=== PATIENT | male | born 1960 | race Caucasian/White ===

== ENCOUNTER 2024-09-26 11:13 | Inpatient (IN) | payer BC, MEDICAID ==
[~2024-09-26] VITALS: Ht 185.4 cm; Wt 77.3 kg
[2024-09-26 14:26] LABS: BASOPHILS # (AUTO) 0.1 X10'3 (0-0.2); BASOPHILS % (AUTO) 0.6 % (0-1); EOSINOPHILS # (AUTO) 0.2 X10'3 (0-0.9); EOSINOPHILS % (AUTO) 1.8 % (0-6); HEMATOCRIT 29.6 % (42.0-52.0); HEMOGLOBIN 9.9 g/dl (14.0-17.9); LYMPHOCYTES # (AUTO) 2.1 X10'3 (1.1-4.8); LYMPHOCYTES % (AUTO) 17.8 % (21-51); MEAN CORPUSCULAR HEMOGLOBIN 30.1 PG (27.0-31.0); MEAN CORPUSCULAR HGB CONC 33.4 g/dL (33.0-36.5); MEAN PLATELET VOLUME 7.9 FL (7.4-10.4); MONOCYTES # (AUTO) 0.7 X10'3 (0-0.9); MONOCYTES % (AUTO) 6.1 % (2-12); NEUTROPHILS # (AUTO) 8.7 X10'3 (1.8-7.7); NEUTROPHILS % (AUTO) 73.7 % (42-75); PLATELET COUNT 442 X10'3 (140-440); RED BLOOD COUNT 3.29 X10'6 (4.70-6.10); RED CELL DISTRIBUTION WIDTH 12.9 % (11.5-14.5); WHITE BLOOD COUNT 11.8 X10'3 (4.5-11.0)
[2024-09-26 14:39] LABS: ALANINE AMINOTRANSFERASE 30 U/L (12-78); ALBUMIN 2.7 G/DL (3.4-5.0); ALBUMIN/GLOBULIN RATIO 0.5 (1.1-1.5); ALKALINE PHOSPHATASE 218 IU/L (46-116); ANION GAP 8 (8-16); ASPARTATE AMINO TRANSFERASE 23 U/L (10-37); BILIRUBIN,TOTAL 0.4 MG/DL (0.1-1.0); BLOOD UREA NITROGEN 21 MG/DL (7-18); BUN/CREATININE RATIO 21.2 (10.0-20.0); CALCIUM 8.9 MG/DL (8.5-10.1); CHLORIDE 100 MMOL/L (99-107); CREATININE 0.99 MG/DL (0.60-1.10); GLUCOSE 213 MG/DL (70-104); POTASSIUM 4.5 MMOL/L (3.5-5.1); SODIUM 134 MMOL/L (135-145); TOTAL CARBON DIOXIDE 26.3 MMOL/L (24-32); TOTAL PROTEIN 8.6 G/DL (6.4-8.2); eCRCL 85 ML/MIN; eGFR 77 ML/MIN
[2024-09-26] MEDS ORDERED: iohexol 300mg/ml 100ml inj. ONE (14:47)
[2024-09-26] MEDS ORDERED: vancomycin inj 1,750 MG in normal saline 500ml IV soln 350 ML IV ONE (16:45)
[2024-09-26] MEDS ORDERED: acetaminophen 325mg tablet PO PRN ×2 (17:05)
[2024-09-26] MEDS ORDERED: ondansetron/PF 4mg/2ml inj IV PRN (17:05)
[2024-09-26] MEDS ORDERED: magnesium sulf-water 2g/50mL 50 ML IV PRN (17:05)
[2024-09-26] MEDS ORDERED: mag hydrox/Alum hydrox/simeth 30ml oral suspension PO PRN (17:05)
[2024-09-26] MEDS ORDERED: bisacodyl 10mg suppository rectal RC PRN (17:05)
[2024-09-26] MEDS ORDERED: magnesium hydroxide 30ml (MOM) UD suspension PO PRN (17:05)
[2024-09-26] MEDS ORDERED: ondansetron 4mg rapidly disintigrating tab PO PRN (17:05)
[2024-09-26] MEDS ORDERED: acetaminophen 650mg rectal suppository RC PRN (17:05)
[2024-09-26] MEDS ORDERED: magnesium sulf-water 4G/100mL 100 ML IV PRN (17:05)
[2024-09-26] MEDS ORDERED: potassium Cl 20 mEq SR tablet PO PRN ×2 (17:05)
[2024-09-26] MEDS ORDERED: potassium Cl 40MEQ/1/2NS 520ml 520 ML IV PRN (17:05)
[2024-09-26] MEDS ORDERED: magnesium Cl slow-release 64mg tablet PO PRN (17:05)
[2024-09-26] MEDS ORDERED: DEXTROSE 15 GM of carb/4 tabs (each vial/BOTTLE has 4 tablets) PO PRN ×4 (17:10)
[2024-09-26] MEDS ORDERED: dextrose 50%-water 50ml dispensing syringe IV PRN ×4 (17:10)
[2024-09-26] MEDS ORDERED: glucagon, human recombinant 1mg kit SUBCUT PRN ×2 (17:10)
[2024-09-26] MEDS: VANCOMYCIN 1.75GM/WATER FOR INJ (PEG) 350 ML IVPB IV ONE (17:31)
[2024-09-26] MEDS: normal saline 1000ml 1,000 ML IV SCH (17:31)
[2024-09-26 17:58] LABS: APTT 28 SECONDS (22-32); INR 1.1 INR; PROTHROMBIN TIME 11.4 SECONDS (9.0-12.0)
[2024-09-26] MEDS: INSULIN LISPRO 100 UNIT/ML INSULN.PEN MULTI-DOSE SQ SCH (18:08)
[2024-09-26 18:33] LABS: MAGNESIUM 1.7 MG/DL (1.5-2.4); POTASSIUM 3.9 MMOL/L (3.5-5.1)
[2024-09-26 18:37] LABS: HEMOGLOBIN A1C 9.8 % (4.5-6.2)
[2024-09-26 19:14] LABS: MAGNESIUM 1.6 MG/DL (1.5-2.4); PHOSPHORUS 3.1 MG/DL (2.3-4.5)
[2024-09-26] MEDS ORDERED: LISI20TA28 PO (19:16)
[2024-09-26] MEDS ORDERED: PARO10TA4 CORPAK (19:16)
[2024-09-26] MEDS ORDERED: FURO-150 PO (19:16)
[2024-09-26] MEDS ORDERED: XAL0.005OS RIGHTEYE (19:16)
[2024-09-26] MEDS ORDERED: VANCOMYCIN 1GM 200ML H20 (PEG) 200 ML IV SCH (20:00)
[2024-09-26] MEDS: K and/or MAG REPLACEMENT MC SCH (20:00)
[2024-09-26] MEDS ORDERED: piperacillin/tazo 4.5gm/100ml 100 ML IV SCH (20:00)
[2024-09-26] MEDS: docusate sod 100mg capsule PO SCH (20:19)
[2024-09-26] MEDS ORDERED: temazepam 15mg capsule PO PRN (21:00)
[2024-09-26] MEDS: insulin glargine (Lantus) pen - multi-dose SQ SCH (21:53)
[2024-09-27] VITALS (7 sets, daily range): BP systolic 112–135; BP diastolic 55–74; PULSE 65–83; RESP 15–17; TEMP 97.2–98.5; O2SAT 93–100
[2024-09-27] MEDS: piperacillin/tazo 4.5gm/100ml 100 ML IV SCH (01:41)
[2024-09-27] MEDS: VANCOMYCIN 1GM 200ML H20 (PEG) 200 ML IV SCH (06:40)
[2024-09-27 06:43] LABS: ALANINE AMINOTRANSFERASE 24 U/L (12-78); ALBUMIN 2.2 G/DL (3.4-5.0); ALBUMIN/GLOBULIN RATIO 0.4 (1.1-1.5); ALKALINE PHOSPHATASE 178 IU/L (46-116); ANION GAP 7 (8-16); ASPARTATE AMINO TRANSFERASE 16 U/L (10-37); BILIRUBIN,TOTAL 0.3 MG/DL (0.1-1.0); BLOOD UREA NITROGEN 18 MG/DL (7-18); CALCIUM 8.5 MG/DL (8.5-10.1); CHLORIDE 102 MMOL/L (99-107); CHOL/HDL RATIO 2.3 (0.00-4.99); CHOLESTEROL 78 MG/DL (0-200); GLUCOSE 208 MG/DL (70-104); HDL CHOLESTEROL 34 MG/DL (35-60); LDL CHOLESTEROL 35 MG/DL (50-100); MAGNESIUM 1.6 MG/DL (1.5-2.4); POTASSIUM 4.3 MMOL/L (3.5-5.1); SODIUM 137 MMOL/L (135-145); TOTAL CARBON DIOXIDE 27.7 MMOL/L (24-32); TOTAL PROTEIN 7.3 G/DL (6.4-8.2); TRIGLYCERIDES 80 MG/DL (20-135); eCRCL 93 ML/MIN; eGFR 86 ML/MIN
[2024-09-27 07:14] LABS: BASOPHILS # (AUTO) 0.1 X10'3 (0-0.2); BASOPHILS % (AUTO) 0.7 % (0-1); EOSINOPHILS # (AUTO) 0.2 X10'3 (0-0.9); EOSINOPHILS % (AUTO) 2.7 % (0-6); HEMATOCRIT 27.4 % (42.0-52.0); LYMPHOCYTES # (AUTO) 1.8 X10'3 (1.1-4.8); LYMPHOCYTES % (AUTO) 20.2 % (21-51); MEAN CORPUSCULAR HEMOGLOBIN 29.7 PG (27.0-31.0); MEAN CORPUSCULAR VOLUME 90.1 FL (78-98); MEAN PLATELET VOLUME 8.1 FL (7.4-10.4); MONOCYTES # (AUTO) 0.6 X10'3 (0-0.9); MONOCYTES % (AUTO) 6.8 % (2-12); NEUTROPHILS # (AUTO) 6.4 X10'3 (1.8-7.7); NEUTROPHILS % (AUTO) 69.6 % (42-75); PLATELET COUNT 365 X10'3 (140-440); RED BLOOD COUNT 3.04 X10'6 (4.70-6.10); RED CELL DISTRIBUTION WIDTH 13.1 % (11.5-14.5); WHITE BLOOD COUNT 9.1 X10'3 (4.5-11.0)
[2024-09-27] MEDS: JUVEN Shake w/Arg/Glut/Ca2+Bmb (Juven 19.3gm) pkt 240ml PO SCH (17:00)
[2024-09-28] MEDS: vancomycin/NS 1 GM ADD-VANTAGE 250 ML IV SCH (04:51)
[2024-09-28 06:00] VITALS: BP 121/68; PULSE 83; RESP 17; TEMP 98.1; O2SAT 97
[2024-09-28 06:22] LABS: BASOPHILS # (AUTO) 0.1 X10'3 (0-0.2); BASOPHILS % (AUTO) 0.9 % (0-1); EOSINOPHILS # (AUTO) 0.3 X10'3 (0-0.9); EOSINOPHILS % (AUTO) 3.8 % (0-6); HEMOGLOBIN 9.1 g/dl (14.0-17.9); LYMPHOCYTES # (AUTO) 1.7 X10'3 (1.1-4.8); LYMPHOCYTES % (AUTO) 22.6 % (21-51); MEAN CORPUSCULAR HEMOGLOBIN 30.2 PG (27.0-31.0); MEAN CORPUSCULAR HGB CONC 33.6 g/dL (33.0-36.5); MEAN CORPUSCULAR VOLUME 89.9 FL (78-98); MEAN PLATELET VOLUME 7.9 FL (7.4-10.4); MONOCYTES # (AUTO) 0.5 X10'3 (0-0.9); MONOCYTES % (AUTO) 7.1 % (2-12); NEUTROPHILS % (AUTO) 65.6 % (42-75); PLATELET COUNT 399 X10'3 (140-440); RED BLOOD COUNT 3.01 X10'6 (4.70-6.10); RED CELL DISTRIBUTION WIDTH 13.8 % (11.5-14.5); WHITE BLOOD COUNT 7.6 X10'3 (4.5-11.0)
[2024-09-28 06:54] LABS: ALANINE AMINOTRANSFERASE 20 U/L (12-78); ALBUMIN 2.1 G/DL (3.4-5.0); ALBUMIN/GLOBULIN RATIO 0.4 (1.1-1.5); ALKALINE PHOSPHATASE 168 IU/L (46-116); ANION GAP 7 (8-16); ASPARTATE AMINO TRANSFERASE 20 U/L (10-37); BILIRUBIN,TOTAL 0.3 MG/DL (0.1-1.0); BLOOD UREA NITROGEN 17 MG/DL (7-18); BUN/CREATININE RATIO 16.8 (10.0-20.0); CALCIUM 7.9 MG/DL (8.5-10.1); CHLORIDE 104 MMOL/L (99-107); CREATININE 1.01 MG/DL (0.60-1.10); GLUCOSE 211 MG/DL (70-104); MAGNESIUM 1.6 MG/DL (1.5-2.4); POTASSIUM 4.3 MMOL/L (3.5-5.1); SODIUM 137 MMOL/L (135-145); TOTAL CARBON DIOXIDE 26.4 MMOL/L (24-32); TOTAL PROTEIN 6.9 G/DL (6.4-8.2); eCRCL 83 ML/MIN; eGFR 75 ML/MIN
[2024-09-28] MEDS: JUVEN Smoothie Arginine/Glut./Ca2+Bmb (Juven 19.3pkt) 240ml cup PO SCH (07:30)
[2024-09-28] MEDS ORDERED: naphazoline/pheniramine eye 1 DROP BOTTLE EACHEYE PRN (09:00)
[2024-09-28 10:00] VITALS: BP 134/74; PULSE 81; RESP 16; TEMP 97.4; O2SAT 99
[2024-09-28 18:00] VITALS: BP 125/66; PULSE 80; RESP 15; TEMP 97.4; O2SAT 98
[2024-09-28 20:00] VITALS: RESP 15; O2SAT 98
[2024-09-28] MEDS: latanoprost 0.005% 2.5ml ophthalmic drops RIGHTEYE SCH (20:30)
[2024-09-28 22:00] VITALS: BP 107/55; PULSE 92; RESP 18; TEMP 98; O2SAT 98
[2024-09-29] VITALS (22 sets, daily range): BP systolic 112–155; BP diastolic 56–90; PULSE 60–97; RESP 0–18; TEMP 97.6–98; O2SAT 96–100
[2024-09-29 04:58] LABS: ALANINE AMINOTRANSFERASE 17 U/L (12-78); ALBUMIN/GLOBULIN RATIO 0.4 (1.1-1.5); ALKALINE PHOSPHATASE 161 IU/L (46-116); ANION GAP 5 (8-16); ASPARTATE AMINO TRANSFERASE 19 U/L (10-37); BILIRUBIN,TOTAL 0.4 MG/DL (0.1-1.0); BLOOD UREA NITROGEN 18 MG/DL (7-18); BUN/CREATININE RATIO 20.5 (10.0-20.0); CHLORIDE 106 MMOL/L (99-107); CREATININE 0.88 MG/DL (0.60-1.10); GLUCOSE 226 MG/DL (70-104); POTASSIUM 4.3 MMOL/L (3.5-5.1); SODIUM 138 MMOL/L (135-145); TOTAL CARBON DIOXIDE 26.6 MMOL/L (24-32); TOTAL PROTEIN 6.7 G/DL (6.4-8.2); eCRCL 95 ML/MIN; eGFR 88 ML/MIN
[2024-09-29 04:59] LABS: MAGNESIUM 1.8 MG/DL (1.5-2.4); VANCOMYCIN,TROUGH 13.8 ug/mL (10.0-20.0)
[2024-09-29 05:01] LABS: BASOPHILS # (AUTO) 0.1 X10'3 (0-0.2); BASOPHILS % (AUTO) 0.7 % (0-1); EOSINOPHILS # (AUTO) 0.4 X10'3 (0-0.9); EOSINOPHILS % (AUTO) 4.3 % (0-6); HEMATOCRIT 27.6 % (42.0-52.0); HEMOGLOBIN 9.2 g/dl (14.0-17.9); LYMPHOCYTES # (AUTO) 1.6 X10'3 (1.1-4.8); LYMPHOCYTES % (AUTO) 17.7 % (21-51); MEAN CORPUSCULAR HEMOGLOBIN 30.1 PG (27.0-31.0); MEAN CORPUSCULAR HGB CONC 33.4 g/dL (33.0-36.5); MEAN CORPUSCULAR VOLUME 90.1 FL (78-98); MEAN PLATELET VOLUME 7.7 FL (7.4-10.4); MONOCYTES # (AUTO) 0.6 X10'3 (0-0.9); NEUTROPHILS # (AUTO) 6.6 X10'3 (1.8-7.7); NEUTROPHILS % (AUTO) 71.3 % (42-75); PLATELET COUNT 370 X10'3 (140-440); RED BLOOD COUNT 3.07 X10'6 (4.70-6.10); RED CELL DISTRIBUTION WIDTH 13.9 % (11.5-14.5); WHITE BLOOD COUNT 9.3 X10'3 (4.5-11.0)
[2024-09-29] MEDS: VANCOMYCIN LEVEL IV ONE (05:24)
[2024-09-29] MEDS ORDERED: enalaprilat dihydrate 2.5mg/2ml vial IV PRN (12:45)
[2024-09-29] MEDS: ringers solution, lacted 1,000 ML IV SCH (12:45)
[2024-09-29] MEDS ORDERED: meperidine/PF 25mg/ml syringe IV PRN ×3 (12:45)
[2024-09-29] MEDS ORDERED: labetalol 20mg/4ml (5mg/ml) syringe IV PRN (12:45)
[2024-09-29] MEDS ORDERED: ondansetron/PF 4mg/2ml inj IV PRN (12:45)
[2024-09-29] MEDS ORDERED: morphine 4 MG/ML inj SYRINge IV PRN (12:45)
[2024-09-29] MEDS ORDERED: morphine 2 MG/ML inj. syringe IV PRN (12:45)
[2024-09-29] MEDS ORDERED: proCHLORperazine 10 MG/2 ml inj IV PRN (12:45)
[2024-09-29] MEDS ORDERED: BUPIVAcaine 2.5mg/ml inj 50ml vial (contains preservative) ONE (14:25)
[2024-09-29] MEDS ORDERED: vancomycin 1,000mg inj ONE (14:25)
[2024-09-29] MEDS ORDERED: meperidine/PF 25mg/ml syringe ONE (14:29)
[2024-09-29] MEDS ORDERED: midazolam 1 mg/ML 2ml injection ONE (14:29)
[2024-09-29] MEDS ORDERED: propofol inj 20 ML IV ONE (14:45)
[2024-09-29] MEDS ORDERED: LIDOcaine 2% (20mg/ml) 5ml vial ONE (14:45)
[2024-09-29] MEDS ORDERED: sevoflurane 250ml liquid IH ONE (16:28)
[2024-09-29] MEDS: VANCOMYCIN/WATER FOR INJ (PEG) 1.25GM/250 ML IVPB IV SCH (16:36)
[2024-09-30 06:00] VITALS: BP 114/67; PULSE 84; RESP 16; TEMP 98; O2SAT 99
[2024-09-30 06:14] LABS: BASOPHILS % (AUTO) 0.2 % (0-1); EOSINOPHILS % (AUTO) 0.1 % (0-6); HEMATOCRIT 28.8 % (42.0-52.0); HEMOGLOBIN 9.7 g/dl (14.0-17.9); LYMPHOCYTES # (AUTO) 0.9 X10'3 (1.1-4.8); LYMPHOCYTES % (AUTO) 12.1 % (21-51); MEAN CORPUSCULAR HEMOGLOBIN 30.5 PG (27.0-31.0); MEAN CORPUSCULAR HGB CONC 33.8 g/dL (33.0-36.5); MEAN CORPUSCULAR VOLUME 90.2 FL (78-98); MEAN PLATELET VOLUME 7.9 FL (7.4-10.4); MONOCYTES # (AUTO) 0.3 X10'3 (0-0.9); MONOCYTES % (AUTO) 3.2 % (2-12); NEUTROPHILS # (AUTO) 6.6 X10'3 (1.8-7.7); NEUTROPHILS % (AUTO) 84.4 % (42-75); PLATELET COUNT 407 X10'3 (140-440); RED BLOOD COUNT 3.19 X10'6 (4.70-6.10); RED CELL DISTRIBUTION WIDTH 14.3 % (11.5-14.5); WHITE BLOOD COUNT 7.8 X10'3 (4.5-11.0)
[2024-09-30 06:31] LABS: ALANINE AMINOTRANSFERASE 22 U/L (12-78); ALBUMIN 2.3 G/DL (3.4-5.0); ALBUMIN/GLOBULIN RATIO 0.5 (1.1-1.5); ALKALINE PHOSPHATASE 177 IU/L (46-116); ANION GAP 7 (8-16); ASPARTATE AMINO TRANSFERASE 20 U/L (10-37); BILIRUBIN,TOTAL 0.4 MG/DL (0.1-1.0); BLOOD UREA NITROGEN 22 MG/DL (7-18); BUN/CREATININE RATIO 22.2 (10.0-20.0); CALCIUM 8.3 MG/DL (8.5-10.1); CHLORIDE 104 MMOL/L (99-107); CREATININE 0.99 MG/DL (0.60-1.10); GLUCOSE 255 MG/DL (70-104); MAGNESIUM 1.5 MG/DL (1.5-2.4); SODIUM 137 MMOL/L (135-145); TOTAL CARBON DIOXIDE 26.5 MMOL/L (24-32); TOTAL PROTEIN 7.3 G/DL (6.4-8.2); eCRCL 85 ML/MIN; eGFR 77 ML/MIN
[2024-09-30] MEDS: lisinopril 20mg tablet PO SCH (08:00)
[2024-09-30 10:00] VITALS: BP 129/63; PULSE 82; RESP 16; TEMP 96.8; O2SAT 98
[2024-09-30] MEDS ORDERED: CEPH500C2 PO (10:59)
[2024-09-30] MEDS ORDERED: piperacillin/tazo 3.375gm/50ml 50 ML IV SCH (16:00)
[2024-10-01] MEDS ORDERED: VANCOMYCIN LEVEL IV ONE (04:30)
== END 2024-09-30 14:35 | disposition home or self-care (01) | DRG 314 ==
LOC: ER 11:14 → ED HOLD 17:09 → ORTHO 4S 23:10
PROVIDERS: ADMIT Family Medicine; ATTEND Family Medicine
PROC: 0Y6U0Z3 Detachment at Left 3rd Toe, Low, Open Approach (ICD-10-PCS; principal; 2024-09-29 14:28)
DX: E11.69 Type 2 diabetes mellitus with other specified complication (principal); E87.1 Hypo-osmolality and hyponatremia; L03.116 Cellulitis of left lower limb; E88.09 Other disorders of plasma-protein metabolism, not elsewhere classified; L97.509 Non-pressure chronic ulcer of other part of unspecified foot with unspecified severity; M86.8X7 Other osteomyelitis, ankle and foot; E11.621 Type 2 diabetes mellitus with foot ulcer; D64.9 Anemia, unspecified; E78.5 Hyperlipidemia, unspecified; I10 Essential (primary) hypertension; L02.612 Cutaneous abscess of left foot; Z88.5 Allergy status to narcotic agent
CPT/HCPCS: 36415; 73701; 80053; 80061; 80202; 82948; 83036; 83735; 83880; 84100; 84132; 85025; 85610; 85730; 87070; 87075; 87081; 93005; 97116; 97161; 97530; 99285; A4618; A6222; A6266; A6446; A6449; A7000; G0378; J1100; J1815; J2003; J2175; J2250; J2405; J2543; J2704; J3370; J3372; J3490; J7030; J7120; Q9967